=== PATIENT | female | born 2000 | race Caucasian/White ===

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

== ENCOUNTER 2019-02-26 18:38 | Emergency (ER) | payer OTHER ==
--- NOTE | 2019-02-26 19:22 | ER Document Report ---
HPI - HPI Time Seen by Provider: 02/26/19 19:15 Pain Level: 3 Notes: Patient is a 19-year-old female no significant past medical history presents complaining of left lateral ankle pain and left lateral lower leg pain about two [address] down status post twist injury at 3 PM today. Patient states that she has noticed a little swelling to the area. She is able to ambulate, but is limping. She does not want any Tylenol or Motrin. No other concerns or complaints. Denies any headache, fever, URI, sore throat, chest pain, palpitations, syncope, cough, shortness of breath, wheeze, dyspnea, abdominal pain, nausea/vomiting/diarrhea, urinary retention, dysuria, hematuria, loss of control of bowel or bladder, numbness/tingling, muscle paralysis/weakness, or rash. - ROS Systems Reviewed and Negative: Yes All other systems reviewed and negative - REPRODUCTIVE LMP: current Reproductive: DENIES: : Past Medical History - Social History Smoking Status: Never Smoker Family History: Reviewed & Not Pertinent Patient has suicidal ideation: No Patient has homicidal ideation: No Renal/ Medical History: Denies: Hx Peritoneal Dialysis Vertical Provider Document - CONSTITUTIONAL Agree With Documented VS: Yes Notes: PHYSICAL EXAMINATION: GENERAL: Well-appearing, well-nourished and in no acute distress. LUNGS: Breath sounds clear to auscultation bilaterally and equal. No wheezes rales or rhonchi. HEART: Regular rate and rhythm without murmurs, rubs, gallops. Musculoskeletal: Lt foot/ankle: + mild lateral ankle swelling. No ecchymosis or deformity. FROM to passive/active. Strength 5+/5. N/V intact distal. + tenderness to the lateral malleolus left lower lateral leg approx 2/[address] down lower leg. No bony tenderness of the foot. Achilles intact. Lis Franc maneuver neg. Anterior drawer neg. Extremities: No cyanosis, clubbing, or edema b/l. Peripheral pulses 2+. Cap illary refill less than 3 seconds. NEUROLOGICAL: Normal speech, limping gait. Normal sensory, motor exams PSYCH: Normal mood, normal affect. SKIN: Warm, Dry, normal turgor, no rashes or lesions noted. - INFECTION CONTROL TRAVEL OUTSIDE OF THE [place] IN LAST 30 DAYS: No Course - Re-evaluation Re-evalutation: 02/26/19 Patient is an afebrile, well-hydrated, 19-year-old female who presents to the ED with left ankle pain which I suspect to be a sprain versus strain. Vitals are acceptable without any significant tachycardia, tachypnea, or hypoxia. PE is otherwise unremarkable for any neurovascular compromise, obvious tendon/ligament rupture, obvious fracture/dislocation, septic joint. X-ray was unremarkable for any acute pathology. Ankle stirrup provided today, pt declined crutches. Patient declined any Tylenol or ice. Patient is nontoxic-appearing. Patient is able to ambulate and weight-bear although she is limping. No other labs or imaging warranted at this time based on H&P. Conservative measures otherwise for symptoms. Recheck with your PCM in 3-5 days. Consider consult orthopedics. Return to the ED with any worsening/concerning symptoms otherwise as reviewed in discharge. Patient is in agreement. - Vital Signs Vital signs: Temp Pulse Resp BP Pulse Ox 98.2 F 101 H 16 131/83 H 98 02/26/19 18:46 02/26/19 18:46 02/26/19 18:46 02/26/19 18:46 02/26/19 18:46 Discharge - Discharge Clinical Impression: Left ankle pain Qualifiers: Chronicity: acute Qualified Code(s): M25.572 - Pain in left ankle and joints of left foot Condition: Stable Disposition: HOME, SELF-CARE Additional Instructions: Rest, Ice, Compression, Elevation Tylenol/ibuprofen as needed Light stretches daily Strength exercises as able Moist heat and massage may help F/u with your PCP in 3-5 days for a recheck Consider consult(s) with Orthopedics/physical therapy for ongoing/worsening symptoms Return to the ED with any worsening symptoms and/or development of fever, headache, chest pain, palpitations, syncope, shortness of breath, trouble breathing, abdominal pain, n/v/d, muscle weakness/paralysis, numbness/tingling, swelling, redness, or other worsening symptoms that are concerning to you. Forms: Elevated Blood Pressure Referrals: [facility] [Provider Group] - Follow up as needed
--- NOTE | 2019-02-26 20:29 | RADIOLOGY REPORT (SQ) ---
EXAM DESCRIPTION: XR ANKLE 3 OR MORE VIEWS, XR TIBIA FIBULA 2 VIEWS COMPLETED DATE/TME: 02/26/2019 19:19 CLINICAL HISTORY: 19 years, Female, left ankle pain COMPARISON: None. NUMBER OF VIEWS: TECHNIQUE: LIMITATIONS: None. FINDINGS: 3 views of the left ankle and 2 views of the left tibia and fibula were obtained. No fracture or dislocation. No evidence of arthritis. Mineralization of bone appears normal. IMPRESSION: No acute finding. copyright 2010 [employer]- All Rights Reserved
--- NOTE | 2019-02-26 20:29 | RADIOLOGY REPORT (SQ) ---
EXAM DESCRIPTION: XR ANKLE 3 OR MORE VIEWS, XR TIBIA FIBULA 2 VIEWS COMPLETED DATE/TME: 02/26/2019 19:19 CLINICAL HISTORY: 19 years, Female, left ankle pain COMPARISON: None. NUMBER OF VIEWS: TECHNIQUE: LIMITATIONS: None. FINDINGS: 3 views of the left ankle and 2 views of the left tibia and fibula were obtained. No fracture or dislocation. No evidence of arthritis. Mineralization of bone appears normal. IMPRESSION: No acute finding. copyright 2010 [employer]- All Rights Reserved
[2019-02-26 20:53] VITALS: BP 128/82
== END 2019-02-26 20:53 | disposition home or self-care (01) ==
LOC: ER 18:38
DX: M25.572 Pain in left ankle and joints of left foot (principal); M79.662 Pain in left lower leg
CPT/HCPCS: 99283; 73610; 73590; L1902

== ENCOUNTER 2020-02-09 07:23 | Emergency (ER) | payer OTHER ==
[2020-02-09] MEDS ORDERED: DEXAMETHASONE SOD PHOS INJ 10 MG/1 ML VIAL IV ONE (10:16)
[2020-02-09] MEDS ORDERED: ACETAMINOPHEN 325 MG TABLET PO ONE (10:16)
[2020-02-09] MEDS ORDERED: NORMAL SALINE 500 ML IV ONE (10:17)
[2020-02-09 10:27] LABS: ABSOLUTE LYMPHOCYTES (AUTO) 1.5 10^3/uL (0.5-4.7); ABSOLUTE MONOCYTES (AUTO) 0.4 10^3/uL (0.1-1.4); ABSOLUTE NEUT (AUTO) 6.7 10^3/uL (1.7-8.2); BASOPHILS % (AUTO) 0.3 % (0-2); EOSINOPHILS % (AUTO) 0.3 % (0-6); HEMATOCRIT 42.4 % (36.0-47.0); HEMOGLOBIN 14.5 g/dL (12.0-15.5); LYMPHOCYTES % (AUTO) 17.2 % (13-45); MEAN CORPUSCULAR HEMOGLOBIN 27.8 pg (27.0-33.4); MEAN CORPUSCULAR HGB CONC 34.3 g/dL (32.0-36.0); MEAN CORPUSCULAR VOLUME 81 fl (80-97); MONOCYTES % (AUTO) 4.9 % (3-13); PLATELET COUNT 248 10^3/uL (150-450); RED BLOOD COUNT 5.23 10^6/uL (3.72-5.28); RED CELL DISTRIBUTION WIDTH 14.4 % (11.5-14.0); SEGMENTED NEUTROPHILS % (AUTO) 77.3 % (42-78); TOTAL CELLS COUNTED % (AUTO) 100 %; WHITE BLOOD COUNT 8.7 10^3/uL (4.0-10.5)
[2020-02-09 10:53] LABS: APPEARANCE,URINE CLEAR; BILIRUBIN,URINE NEGATIVE (NEGATIVE); COLOR,URINE YELLOW; GLUCOSE, URINE NEGATIVE (NEGATIVE); KETONES,URINE NEGATIVE (NEGATIVE)
[2020-02-09 10:54] LABS: LEUKOCYTE ESTERASE,URINE NEGATIVE (NEGATIVE); NITRITE,URINE NEGATIVE (NEGATIVE); PROTEIN,URINE NEGATIVE (NEGATIVE); URINE SPECIFIC GRAVITY 1.032; UROBILINOGEN,URINE NEGATIVE mg/dL (<2.0)
--- NOTE | 2020-02-09 11:02 | RADIOLOGY REPORT (SQ) ---
EXAM DESCRIPTION: CHEST SINGLE VIEW IMAGES COMPLETED DATE/TIME: 02/09/2020 10:46 am REASON FOR STUDY: SOB, covid+ COMPARISON: None. NUMBER OF VIEWS: One view. TECHNIQUE: Single frontal radiographic view of the chest acquired. LIMITATIONS: None. FINDINGS: LUNGS AND PLEURA: No opacities, masses or pneumothorax. No pleural effusion. MEDIASTINUM AND HILAR STRUCTURES: No masses. Contour normal. HEART AND VASCULAR STRUCTURES: Heart normal in size. Normal vasculature. BONES: No acute findings. HARDWARE: None in the chest. OTHER: No other significant finding. IMPRESSION: NO SIGNIFICANT RADIOGRAPHIC FINDING IN THE CHEST. TECHNICAL DOCUMENTATION: JOB ID: [id number] 2010 [employer]- All Rights Reserved Reading location - IP/workstation name: [email or web address]
[2020-02-09 11:08] LABS: ALBUMIN 4.1 g/dL (3.5-5.0); ALKALINE PHOSPHATASE 67 U/L (38-126); ANION GAP 9 (5-19); ASPARTATE AMINO TRANSFERASE 25 U/L (14-36); BILIRUBIN,DIRECT 0.1 mg/dL (0.0-0.4); BILIRUBIN,TOTAL 0.3 mg/dL (0.2-1.3); BLOOD UREA NITROGEN 16 mg/dL (7-20); CARBON DIOXIDE 25 mmol/L (22-30); CHLORIDE 104 mmol/L (98-107); GLUCOSE 89 mg/dL (75-110); POTASSIUM 4.3 mmol/L (3.6-5.0); TOTAL PROTEIN 7.3 g/dL (6.3-8.2)
--- NOTE | 2020-02-09 11:14 | ER Document Report ---
ED General - General Chief Complaint: Shortness Of Breath Stated Complaint: SHORT OF BREATH,SORE THROAT Primary Care Provider: JANEE WALLER FNP [Primary Care Provider] - Follow up as needed TRAVEL OUTSIDE OF THE [place] IN LAST 30 DAYS: No - HPI Notes: Chief Complaint:covid, sore throat, cough Historian: History obtained from patient HPI: This is a 20yo female c/o sore throat, sob, BRAVO X 4 days after being diagnosed w/ covid yesterday. PT is tolerating po intake. says she gets sob while ambulating. no episodes of syncope or near syncope. Denies chest pain, hemotpysis, leg swelling/pain, fever, abdom pain, n/v/d, dysuria, or rash. took tylenol this morning w/o relief. ROS: Constitutional: no fevers. HEENT: sore throat, congestion CV: no chest pain or palpitations. Resp: cough, sob GI: no abdominal pain, or n/v/d. : no dysuria, hematuria, or incont. MSK: no back pain, no joint swelling/redness. Skin: no rashes or itching. Neuro: no seizures, weakness, numbness, or confusion. Hematological: no ecchymosis or easy bleeding. Endocrine: no polyuria/polydipsia, no heat/cold intolerance. Psych: no SI/HI, AH/VH or memory loss. PMHx: Reviewed and agree as charted by RN. PSHx: Reviewed and agree as charted by RN. SOCHx: Reviewed and agree as charted by RN. FHX: No significant familial comorbid conditions directly related to patient complaint Current Medications: Reviewed and agree with the patient medications as charted by the RN. Allergies: Reviewed and agree with the listed allergies as charted by the RN Physical Exam: Vitals: Reviewed in chart as documented by RN. General: Alert and in NAD. Head: Normocephalic; atraumatic Eyes: PERRLA, Conjunctivae clear sclerae non-icteric bilat ENT: tonsils 2+ and symm, erythematous, no exudate/vesicles. no soft palate swelling or uvular deviation Neck: trachea midline, no unilateral swelling/tenderness/lymphadenopathy CV: RRR, no M/R/G; symmetric distal pulses Resp: respirations even and unlabored, CTA bilat. GI: abd soft and nondistended. NTTP. normal BS. no masses/HSM. no CVAT bilat MSK: FROM of all extremities. No midline CTL spine tenderness/deformity Skin: warm, moist, good turgor. no rash/lesions Neuro: Alert and oriented X 4. following CN 2-12 intact. no unilateral weakness/numbness Psych: No SI/HI or AH/VH. ED Results: Medical Decision-Making: Medical Decision-making/Differential Diagnosis: Consider various etiologies including but not limited to covid, viral syndrome, URI, bronchitis, pneumonia, CAP, PE-unlikely, bronchitis, mono, viral syndrome, strep pharyngitis, viral pharyngitis, other pharyngitis, matt-tonsillar abscess (unlikely), retropharyngeal abscess (unlikely), Acute Suppurative Otitis media, otalgia, upper respiratory infection, viral syndrome, bronchitis, sinusitis, ect Plan- basic labs, rapid strep, CXR, gentle IVF, decadron. strep positive- will start pt on amoxil cxr negative. O2 sats 99% on RA- no resp distress labs reassuring, pt is nontoxic appearing and appropriate for outpt management. will d/c w/ amoxicillin and steroid burst. supportive care w/ po fluids, vit c and zinc, tylenol. pcp f/u this week. return factors discussed. This course of action was discussed with the patient and/or family. They were amenable to this, verbalized understanding, and were without further questions. - Related Data Allergies/Adverse Reactions: No Known Allergies Allergy (Verified 02/09/20 10:53) Home Medications: Synthroid Past Medical History - Social History Smoking Status: Unknown if Ever Smoked Family History: Reviewed & Not Pertinent Renal/ Medical History: Denies: Hx Peritoneal Dialysis Physical Exam - Vital signs Vitals: Temp Pulse Resp BP Pulse Ox 98.1 F 110 H 20 136/76 H 98 02/09/20 07:26 02/09/20 07:26 02/09/20 07:26 02/09/20 07:26 02/09/20 07:26 Course - Vital Signs Vital signs: Temp Pulse Resp BP Pulse Ox 98.1 F 110 H 20 136/76 H 98 02/09/20 07:26 02/09/20 07:26 02/09/20 07:26 02/09/20 07:26 02/09/20 07:26 - Laboratory Results Result Diagrams: 02/09/20 09:50 02/09/20 09:50 Laboratory Results Interpreted: 02/09/20 09:50 RDW 14.4 H Critical Laboratory Results Reviewed: No Critical Results - Radiology Results Critical Radiology Results Reviewed: No Critical Results Discharge - Discharge Clinical Impression: COVID-19, Strep throat, SOB (shortness of breath) Condition: Stable Disposition: HOME, SELF-CARE Instructions: COVID-19 Guidance for Persons Under Investigation, Strep Throat ([facility]) Additional Instructions: take medications as prescribed. may also take tylenol for pain and/or fevers. drink plenty of fluids to stay hydrated. follow up with your doctor this week for recheck. return to the ER if your condition worsens- especially if you are unable to swallow or severe shortness of breath. follow printed instructions for home care of COVID and strep throat Prescriptions: Amoxicillin 1 tab PO TID #30 tab Prednisone [Deltasone 20 mg Tablet] 2 tab PO DAILY 5 Days #10 tablet Referrals: JANEE WALLER FNP [Primary Care Provider] - Follow up as needed
[2020-02-09 13:03] VITALS: BP 146/72
== END 2020-02-09 13:07 | disposition home or self-care (01) ==
LOC: ER 07:23
DX: J02.0 Streptococcal pharyngitis (principal); U07.1 COVID-19; R06.02 Shortness of breath; R51.9 Headache, unspecified; Z79.899 Other long term (current) drug therapy
CPT/HCPCS: 99284; 96361; 96374; 36415; 87880; 85025; 81025; 80053; 81001; 71045; J7040; J1100